=== PATIENT | male | born 1945 ===

== ENCOUNTER 2021-03-17 08:50 | Emergency (ER) | payer MEDICARE, SELFPAY ==
[2021-03-17 08:54] VITALS: BP 155/96; PULSE 70; RESP 18; TEMP 37.3; O2SAT 96; BMI 29.9
--- NOTE | 2021-03-17 08:55 | W.ED.ABDPA2 ---
HPI - Abdominal Pain General: Chief Complaint: Urogenital-Male Stated Complaint: Pain on left side of abd Time Seen by Provider: 03/17/21 08:55 History of Present Illness: HPI narrative: 76-year-old male patient comes in today for complaints of left flank pain. Patient reports history of kidney stone. Patient takes many medication routinely for his eyes and a blood cholesterol. Patient denies any other chronic medical problems. Patient reports pain started about 2 days ago intermittently. Patient reports increased pain today. Patient is from [place] and is here visiting his son. MD elicited complaint: flank pain Pertinent past history: kidney stones Onset (ago): day(s) Pain Consistency: intermittent Location: L flank Severity: moderate Quality: stabbing and fullness Radiation: L flank Migration to: LLQ Exacerbating factors: nothing Relieving factors: nothing Associated Symptoms: Reports chills and nausea Treatments prior to arrival: NSAIDs (Last dose was last night 800 mg ibuprofen with 1 tizanidine.) Review of Systems General: Reports: 10 or more systems reviewed and unremarkable except in HPI and below Const: Reports: chills GI: Reports: nausea : Reports: flank pain Physical Exam Const: COMMON NORMALS: no acute distress and patient oriented x3 GENERAL APPEARANCE: cooperative HENMT: COMMON NORMALS: normocephalic and Normal external nose present HEAD & SCALP: normal to inspection and normocephalic NOSE: Normal external nose present MOUTH: Normal oral and palatal mucosa present Eye: GENERAL EYE: appearance normal, both eyes and all related structures Neck/C-Spine: COMMON NORMALS: full ROM Lymph: LYMPHATIC: no lymphadenopathy noted Chest: COMMONS NORMALS: normal inspection of the chest Resp: COMMON NORMALS: normal respiratory effort EFFORT & INSPECTION: Yes able to speak in complete sentences Cardio: COMMON NORMALS: regular rate and regular rhythm RATE: regular rate RHYTHM: regular rhythm GI: COMMON NORMALS: non-tender : BLADDER/KIDNEY EXAM: Yes CVA tenderness on the left Back/Pelvis: COMMON NORMALS: thoracic and lumbar spine normal to inspection and no thoracic nor lumbar tenderness GENERAL BACK: Yes CVA tenderness Extremity: COMMON NORMALS: normal to inspection Neuro: COMMON NORMALS: patient oriented x3 and moves all extremities Psych: COMMON NORMALS: mental status grossly normal and cooperative Skin: COMMON NORMALS: no rashes or lesions noted GENERAL SKIN EXAM: no rashes or lesions noted Course Vital Signs: Vital signs: Vital Signs Temperature 99.2 F 03/17/21 08:54 Pulse Rate 70 03/17/21 08:54 Respiratory Rate 18 03/17/21 09:25 Blood Pressure 155/96 03/17/21 08:54 Pulse Oximetry 96 03/17/21 08:54 MDM - Abdominal Pain MDM Narrative: Medical decision making narrative: 76-year-old male comes in with left flank pain radiating into his left lower abdomen. Patient has a history of kidney stones. On exam patient's left lower abdomen is tender he also has some left CVA tenderness. Vital signs are normal. Differential diagnosis includes not limited to diverticulitis, pyelonephritis, urinary calculi. Laboratory values were unremarkable except for some mild elevation in creatinine at 1.6. Urinalysis was clear except for some blood. No signs of infection were noted at this time. CT scan noted a 6 mm stone in the ureter on the left side. Patient was treated for pain and had good results with 50 mg of Toradol, 2 mg of morphine, and some Zofran. Reviewed exam with patient recommendations for treatment for pain and nausea with recommended follow-up with urologist. Patient reported understanding agreed to plan for follow-up appointment when he returns home to [place]. Lab Data: Labs: Lab Results 03/17/21 03/17/21 03/17/21 Range/Units 09:15 09:25 09:25 WBC 8.9 (4.0-10.0) 10^3/ uL RBC 5.28 (4.1-5.3) 10^6/u L Hgb 16.4 (11.7-16.6) g/dL Hct 48.6 (42.0-52.0) % MCV 92.0 (80-94) fL MCH 31.1 (28.0-34.0) pg MCHC 33.7 (30.0-36.0) g/dL RDW 13.3 (12.1-15.1) % Plt Count 175 (130-400) 10^3/c mm MPV 9.2 (7.4-10.4) fL Neut % (Auto) 72.8 % Lymph % (Auto) 18.9 % Gillespie % (Auto) 6.3 % Eos % (Auto) 1.2 % Baso % (Auto) 0.5 % Neut # (Auto) 6.45 (1.8-7.7) 10^3/u L Lymph # (Auto) 1.7 (0.8-4.8) 10^3/u L Gillespie # (Auto) 0.6 (0.2-0.9) 10^3/u L Eos # (Auto) 0.1 (0.0-0.8) 10^3/u L Baso # (Auto) 0.0 (0.0-0.1) 10^3/u L Nucleated RBC % (a uto) 0 % Nucleated RBCs # 0.0 /100WBC Sodium 136 (136-145) mmol/L Potassium 4.3 (3.5-5.1) mmol/L Chloride 100 (98-107) mmol/L Carbon Dioxide 24 (22-29) mmol/L Anion Gap 16.3 (5-19) BUN 26 H (8-23) mg/dL Creatinine 1.6 H (0.7-1.2) mg/dL GFR Calculation Not Reportable Glucose 107 (65-115) mg/dL Calculated Osmolal ity 287 (285-295) mOsm/k g Calcium 9.1 (8.5-10.5) mg/dL Total Bilirubin 1.2 (0.15-1.2) mg/dL AST 18 (0-40) U/L ALT 15 (0-41) U/L Alkaline Phosphata se 84 (40-130) IU/L Total Protein 7.9 (6.6-8.7) g/dL Albumin 4.0 (3.5-5.2) g/dL Globulin 3.9 (1.3-4.6) g/dL Lipase 32 (13-60) U/L Urine Color Yellow (Yellow) Urine Appearance Clear (CLEAR) Urine pH 5 (5-7) Ur Specific Gravit y 1.020 (1.005-1.030) Urine Protein Neg (Negative) Urine Glucose (UA) Norm (Normal) Urine Ketones Negative (Negative) Urine Blood 2+ H (Negative) Urine Nitrate Negative (Negative) Urine Bilirubin Neg (Negative) Urine Urobilinogen Norm (Negative) mg/dL Ur Leukocyte Penny ase Negative (Negative) Urine RBC 0-4 H (0-2) /hpf Urine WBC Rare (0-5) /hpf Ur Squamous Epith Cells 0-4 H (0-5) /hpf Amorphous Sediment Not Reportable Urine Bacteria Trace (NONE) /hpf Fine Granular Cast s 0-4 H /lpf Urine Mucus 1+ /hpf Discharge Plan Discharge Patient Disposition: Home Clinical Impression: Renal calculus, left Condition: Stable Prescriptions: New ondansetron HCl 4 mg tablet 4 mg PO Q8H PRN (Reason: nausea and vomiting) 3 Days RF: 0 hydrocodone-acetaminophen 5-325 mg tablet 1 tab PO Q6H PRN (Reason: pain) Qty: 12 RF: 0 ketorolac 10 mg tablet 10 mg PO Q6H PRN (Reason: pain) 3 Days RF: 0 tamsulosin 0.4 mg capsule 0.4 mg PO DAILY Qty: 10 RF: 0 Discharge Orders: Discharge ED (Routine); Ordered 03/17/21 Ordered By: Gerald Mccabe Discharge Diet: Usual diet Discharge Activity: Increase activity as tolerated Patient Instructions: Kidney Stones (ED), Opioid Safety Activity Restrictions/Additional Instructions: Monitor for fever. Medications as directed. Activity as tolerated. Follow-up with primary care for further instructions. Return to the ED for new concerns. 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
--- NOTE | 2021-03-17 09:04 | CTR_ITS ---
PROCEDURE INFORMATION: Exam: CT Abdomen And Pelvis Without Contrast Exam date and time: 03/17/2021 9:15 AM Age: 76 years old Clinical indication: Abdominal pain; Flank; Left; Prior surgery; Surgery date: 6+ months; Surgery type: Hernia; Patient HX: HX of renal calculus; Additional info: Left flank pain TECHNIQUE: Imaging protocol: Computed tomography of the abdomen and pelvis without contrast. Radiation optimization: All CT scans at this facility use at least one of these dose optimization techniques: automated exposure control; mA and/or kV adjustment per patient size (includes targeted exams where dose is matched to clinical indication); or iterative reconstruction. COMPARISON: No relevant prior studies available. RADIATION DOSE METRICS: Total DLP (mGy-cm): 1674.93 FINDINGS: Detailed evaluation of the abdominal and pelvic viscera is somewhat limited in the absence of intravenous contrast. Inferior thorax: Interstitial prominence and trace airspace disease. Coronary artery calcification. Liver: Fatty infiltration of the liver and 5 mm nodular hypodensity of fat attenuation in the right hepatic lobe. Gallbladder and bile ducts: No cholelithiasis or biliary ductal dilatation. Pancreas: Pancreatic ductal dilatation, which can be better characterized with ERCP or MRCP, if clinically indicated. Spleen: No splenomegaly. 2.2 cm accessory spleen. Adrenal glands: Unremarkable adrenals. Kidneys and ureters: Right pelvicaliceal dilatation with abrupt change in caliber at the level of the UPJ, suggesting UPJ stenosis. Marked left hydronephrosis in association with a 6 mm left ureteral calculus at the L3 level. Subcentimeter nonobstructing bilateral renal calculi, including a 5 mm left renal calculus. Nonspecific star-shaped radiopaque density at the level of the left UPJ. Stomach and bowel: Mild wall thickening in the nondistended bladder. Combined small bowel and colonic dilatation along with prominent stool. Diverticula, without pericolonic inflammation. Appendix: No acute appendicitis. Intraperitoneal space: No significant free fluid. Vasculature: Vascular calcification. No abdominal aortic aneurysm. Lymph nodes: Subcentimeter lymph nodes. Urinary bladder: Multiple dependent bladder calculi. Reproductive: Calcifications and inhomogeneous attenuation in the markedly enlarged prostate, which produces extrinsic compression of the bladder base with loss of normal fascial planes. Bones/joints: Degenerative change, disc bulging, and vacuum discs. Soft tissues: Left inguinal hernia. CT/CT kidney stone [id number] IMPRESSION: 1. Right pelvicaliceal dilatation with abrupt change in caliber at the level of the UPJ, suggesting UPJ stenosis. 2. Marked left hydronephrosis in association with a 6 mm left ureteral calculus at the L3 level. 3. Subcentimeter nonobstructing bilateral renal calculi. 4. Pancreatic ductal dilatation, which can be better characterized with ERCP or MRCP, if clinically indicated. 5. Markedly enlarged prostate producing extrinsic compression of the bladder base with loss of normal fascial planes. 6. Multiple dependent bladder calculi. 7. Additional findings as described above. Radiation Dose CTDIVOL = (mGy): DLP = 1674.93 (mGy-cm)
[2021-03-17] MEDS: ondansetron 2 mg/ML SDV 2 mL 4 MG IVP (09:23)
[2021-03-17] MEDS: ketorolac 30 mg/mL INJ 15 MG IVP (09:24)
[2021-03-17 09:25] VITALS: RESP 18
[2021-03-17] MEDS: morphine 4 mg/mL SDV 1 mL 2 MG IVP (09:25)
[2021-03-17 09:34] LABS: Basophils % 0.5 %; Eosinophils # 0.1 10^3/uL (0.0-0.8); Eosinophils % 1.2 %; Hematocrit 48.6 % (42.0-52.0); Hemoglobin 16.4 g/dL (11.7-16.6); Lymphocytes # 1.7 10^3/uL (0.8-4.8); Lymphocytes % 18.9 %; Mean Corpuscular HGB Conc 33.7 g/dL (30.0-36.0); Mean Corpuscular Hemoglobin 31.1 pg (28.0-34.0); Mean Platelet Volume 9.2 fL (7.4-10.4); Monocytes # 0.6 10^3/uL (0.2-0.9); Monocytes % 6.3 %; Neutrophils # 6.45 10^3/uL (1.8-7.7); Neutrophils % 72.8 %; Nucleated Red Blood Cells % 0 %; Platelet Count 175 10^3/cmm (130-400); Red Blood Count 5.28 10^6/uL (4.1-5.3); Red Cell Distribution Width 13.3 % (12.1-15.1); White Blood Count 8.9 10^3/uL (4.0-10.0)
[2021-03-17 09:40] LABS: Add Urine Microscopic? YES; Bilirubin Urine Neg (Negative); Blood Urine 2+ (Negative); Glucose Urine UA Norm (Normal); Ketones Urine Negative (Negative); Leukocyte Esterase Urine Negative (Negative); Nitrate Urine Negative (Negative); Protein Urine Neg (Negative); Urine Appearance Clear (CLEAR); Urine Color Yellow (Yellow); Urobilinogen Urine Norm (Negative); pH Urine 5 (5-7)
[2021-03-17 09:56] LABS: Alanine Aminotransferase 15 U/L (0-41); Alkaline Phosphatase 84 IU/L (40-130); Anion Gap 16.3 (5-19); Aspartate Amino Transferase 18 U/L (0-40); Blood Urea Nitrogen 26 mg/dL (8-23); Calcium 9.1 mg/dL (8.5-10.5); Carbon Dioxide 24 mmol/L (22-29); Chloride 100 mmol/L (98-107); Globulin 3.9 g/dL (1.3-4.6); Glucose 107 mg/dL (65-115); Lipase 32 U/L (13-60); Osmolality Calculated 287 mOsm/kg (285-295); Potassium 4.3 mmol/L (3.5-5.1); Sodium 136 mmol/L (136-145); Total Bilirubin 1.2 mg/dL (0.15-1.2); Total Protein 7.9 g/dL (6.6-8.7)
[2021-03-17 09:58] LABS: RBC Urine 0-4 /hpf (0-2); Squamous Epithelial Cell Urine 0-4 /hpf (0-5); WBC Urine RARE /hpf (0-5)
[2021-03-17 09:59] LABS: Add Urine Culture? No; Bacteria Urine TRACE /hpf; Fine Granular Casts Urine 0-4 /lpf; Mucus Urine 1+ /hpf
[2021-03-17 11:27] VITALS: BP 147/81; PULSE 58; RESP 16; O2SAT 98
== END 2021-03-17 11:28 | disposition home or self-care (01) ==
PROVIDERS: Emergency Provider Nurse Practitioner Family
DX: N20.0 Calculus of kidney (principal)
CPT/HCPCS: 74176; 80053; 81001; 83690; 85025; 96374; 96375; 99283; J1885; J2270; J2405